=== PATIENT | female | born 1975 | race African-American/Black ===

== ENCOUNTER 2019-04-18 05:28 | Inpatient (IN) ==
[2019-04-10 11:01] LABS: Basophils % 0.7 % (0.0-0.8); Eosinophils # 0.1 10*3/uL (0.0-0.87); Eosinophils % 2.6 % (0.00-10.9); Hematocrit 42.7 VOL% (35.7-47.0); Hemoglobin 13.7 GM/DL (12.0-16.0); Immature Granulocytes % 0.2 %; Immature Granulocytes Absolute 0.01 #; Lymphocytes # 1.8 10*3/uL (1.4-4.0); Lymphocytes % 33.2 % (21.3-54.2); Mean Corpuscular HGB Conc 32.1 GM/DL (32-36); Mean Platelet Volume 11.3 FL (9.6-12.0); Monocytes % 7.6 % (1.7-12.7); Neutrophils % 55.7 % (38.7-73.9); Platelet Count 194 T/CUMM (130-400); Red Blood Count 4.69 MC/CUMM (3.8-5.5); Red Cell Distribution Width 12.4 % (9.3-17.3); White Blood Count 5.4 T/CUMM (4-12)
[2019-04-10 11:10] LABS: Apearance,Urine CLEAR (Clear); Bacteria,Urine Occasional /HPF (Few); Bilirubin,Urine Negative (Negative); Blood, Urine Negative (Negative); Glucose,Urine (UA) Negative (Negative); Ketones,Urine Negative (Negative); Mucus,Urine Occasional /LPF (Occasional); Nitrite,Urine Negative (Negative); Protein,Urine Negative; RBC,Urine <1 /HPF (0-4); Squamous Epithelial Cell,Urine Occasional /HPF (0-10); Urine Color Yellow (Yellow); Urine Specific Gravity 1.012 (1.001-1.035); Urine Urobilinogen < 2.0 EU/DL (0.2-1.0); WBC,Urine <1 /HPF (0-6)
[2019-04-10 11:13] LABS: INR 0.9; PT Patient Result 9.6 SECS (9.6-12.2); Partial Thromboplastin Time 26.9 SECS (20.8-36.0)
[2019-04-10 11:28] LABS: Calcium 9.1 MG/DL (8.5-10.1); Osmolality,Calculated 271.8 MOS/KG (273-304)
[2019-04-18] MEDS ORDERED: ACETAMINOPHEN 500 MG TABLET PO ONE (06:00)
[2019-04-18] MEDS ORDERED: FAMOTIDINE 20 MG TABLET PO ONE (06:00)
[2019-04-18] MEDS ORDERED: DIAZEPAM 5 MG TABLET PO ONE (06:00)
[2019-04-18] MEDS ORDERED: SCOPOLAMINE 1.5 MG PATCH TRANSDERM ONE ×2 (06:00→06:12)
[2019-04-18] MEDS ORDERED: ceFAZolin 1,000 MG VIAL ONE (06:11)
[2019-04-18] MEDS ORDERED: DIAZEPAM 5 MG TABLET ONE (06:12)
[2019-04-18] MEDS ORDERED: FAMOTIDINE 20 MG TABLET ONE (06:12)
[2019-04-18] MEDS ORDERED: ACETAMINOPHEN 500 MG TABLET ONE (06:12)
[2019-04-18] MEDS ORDERED: ceFAZolin 1,000 MG in SYRINGE 1 EACH IV ONE (06:30)
[2019-04-18] MEDS ORDERED: LACTATED RINGERS 1,000 ML IV SCH (07:00)
[2019-04-18] MEDS ORDERED: SUGAMMADEX 200 MG/2 ML VIAL IV ONE (08:49)
[2019-04-18 09:01] LABS: Apearance,Urine CLEAR (Clear); Bilirubin,Urine Negative (Negative); Blood, Urine Negative (Negative); Glucose,Urine (UA) Negative (Negative); Ketones,Urine Negative (Negative); Mucus,Urine Occasional /LPF (Occasional); Nitrite,Urine Negative (Negative); Protein,Urine Negative; RBC,Urine 1 /HPF (0-4); Squamous Epithelial Cell,Urine Occasional /HPF (0-10); Urine Color Straw (Yellow); Urine Specific Gravity 1.006 (1.001-1.035); Urine Urobilinogen < 2.0 EU/DL (0.2-1.0)
[2019-04-18] MEDS ORDERED: BENZOCAINE/MENTHOL LOZENGE 18/BOX PO PRN (09:21)
[2019-04-18] MEDS ORDERED: BISACODYL 10 MG SUPP RECTAL PRN (09:21)
[2019-04-18] MEDS ORDERED: oxyCODONE/ACETAMINOPHEN 5-325 MG TABLET PO PRN (09:21)
[2019-04-18] MEDS ORDERED: MAGNESIUM HYDROXIDE SUSP 30 ML UDCUP PO PRN (09:21)
[2019-04-18] MEDS ORDERED: ACETAMINOPHEN 325 MG TABLET PO PRN (09:21)
[2019-04-18] MEDS ORDERED: IBUPROFEN 800 MG TABLET PO PRN (09:21)
[2019-04-18] MEDS ORDERED: ONDANSETRON 4 MG/2 ML VIAL IV PRN ×2 (09:21→09:40)
[2019-04-18] MEDS ORDERED: LIDOCAINE 2% 5 ML VIAL ONE (09:35)
[2019-04-18] MEDS ORDERED: propofoL 200 MG/20 ML VIAL IV ONE (09:35)
[2019-04-18] MEDS ORDERED: DEXAMETHASONE 4 MG/1 ML VIAL ONE (09:36)
[2019-04-18] MEDS ORDERED: ONDANSETRON 4 MG/2 ML VIAL ONE ×2 (09:36)
[2019-04-18] MEDS ORDERED: ROCURONIUM 100 MG/10 ML VIAL IV ONE (09:36)
[2019-04-18] MEDS ORDERED: fentaNYL 250 MCG/5 ML VIAL ONE (09:36)
[2019-04-18] MEDS ORDERED: HYDROmorphone 2 MG/1 ML VIAL ONE (09:36)
[2019-04-18] MEDS ORDERED: BUPIVACAINE MPF 0.25% 30 ML VIAL ONE (09:36)
[2019-04-18] MEDS ORDERED: MIDAZOLAM 2 MG/2 ML VIAL ONE (09:36)
[2019-04-18] MEDS ORDERED: ePHEDrine 50 MG/ML AMP ONE (09:36)
[2019-04-18] MEDS ORDERED: SEVOFLURANE 1 UNIT/15 MINUTE INH ONE (09:37)
[2019-04-18] MEDS: HYDROmorphone 2 MG/1 ML VIAL IV PRN ×2 (09:37→09:50)
[2019-04-18] MEDS ORDERED: LACTATED RINGERS 1,000 ML IV ONE (09:37)
[2019-04-18] MEDS ORDERED: HYDROmorphone 2 MG/1 ML VIAL IV PRN (12:10)
[2019-04-18] MEDS: LACTATED RINGERS 1,000 ML IV SCH ×2 (12:30→19:48)
[2019-04-18] MEDS: MEPERIDINE 50 MG/1 ML VIAL IV PRN ×3 (15:01→23:44)
[2019-04-18] MEDS: ceFAZolin 1,000 MG in SYRINGE 1 EACH IV SCH ×2 (16:39→23:47)
[2019-04-19 06:18] LABS: Basophils % 0.2 % (0.0-0.8); Eosinophils % 0.2 % (0.00-10.9); Hematocrit 38.2 VOL% (35.7-47.0); Hemoglobin 12.7 GM/DL (12.0-16.0); Immature Granulocytes % 0.4 %; Immature Granulocytes Absolute 0.04 #; Lymphocytes # 1.7 10*3/uL (1.4-4.0); Lymphocytes % 15.2 % (21.3-54.2); Mean Corpuscular HGB Conc 33.2 GM/DL (32-36); Mean Corpuscular Volume 87.8 FL (87-102); Mean Platelet Volume 11.7 FL (9.6-12.0); Monocytes % 9.2 % (1.7-12.7); Neutrophils % 74.8 % (38.7-73.9); Platelet Count 187 T/CUMM (130-400); Red Blood Count 4.35 MC/CUMM (3.8-5.5); Red Cell Distribution Width 12.5 % (9.3-17.3); White Blood Count 11.3 T/CUMM (4-12)
[2019-04-19] MEDS: DOCUSATE SODIUM 100 MG CAPSULE PO PRN ×2 (11:34→23:58)
[2019-04-19] MEDS ORDERED: SIMETHICONE CHEW 80 MG TABLET PO PRN (21:54)
[2019-04-20 09:39] VITALS: BP 103/58
== END 2019-04-20 13:10 | disposition home or self-care (01) | DRG 743 ==
LOC: N.SDS 05:28 → N.SDSINP 05:30 → EDSTATUS 07:30 → N.SDSINP 09:21 → N.OB 10:12
PROVIDERS: ADMIT Specialist; ATTEND Specialist